=== PATIENT | female | born 1960 | race American Indian/Alaskan Native ===

== ENCOUNTER 2016-11-03 11:43 | Emergency (ER) | payer MEDICAID ==
[2016-11-03 11:45] VITALS: BMI 31.6
== END 2016-11-03 14:11 | disposition left against medical advice (07) ==
LOC: ED 11:43
DX: Z02.89 Encounter for other administrative examinations (principal); Z00.00 Encounter for general adult medical examination without abnormal findings

== ENCOUNTER 2017-09-21 16:03 | Emergency (ER) | payer MEDICAID, OTHER ==
[2017-09-21 16:04] VITALS: BMI 31.6
[2017-09-21 16:32] VITALS: BP 163/71; PULSE 89; RESP 19; TEMP 98.5; O2SAT 96
--- NOTE | 2017-09-21 17:26 | ED PDOC ---
Arrival/HPI - General Chief Complaint: ENT Problem Time Seen by Provider: 09/21/17 17:23 Historian: Patient - History of Present Illness Narrative History of Present Illness (Text): 09/21/17 17:25 This 57 yo female with pmh htn, and pna, presents to this ED c/o cough sore throat, and fever x 2 days. Patient stated her grandson was dx. with Influenza , and she feels she was exposed to the influenza virus. Denies sob, cp, abdominal pain, skin rash, dizziness, urinary symptoms, or abnormal gait. Time/Duration: Other (see hpi) Context: Home Past Medical History - Provider Review Nursing Documentation Reviewed: Yes - Infectious Disease Hx of Infectious Diseases: None - Tetanus Immunization Tetanus Immunization: Unknown - Reproductive Menopause: Yes - Cardiac Hx Hypertension: Yes - Pulmonary Hx Respiratory Disorders: Yes Hx Asthma: Yes - Musculoskeletal/Rheumatological Hx Falls: No - Psychiatric Hx Substance Use: No - Surgical History Hx Cholecystectomy: Yes - Anesthesia Hx Anesthesia: Yes Hx Anesthesia Reactions: No Hx Malignant Hyperthermia: No Family/Social History - Physician Review Nursing Documentation Reviewed: Yes Family/Social History: Other Smoking Status: Former Smoker Hx Alcohol Use: Yes (social) Hx Substance Use: No Allergies/Home Meds Allergies/Adverse Reactions: Allergies No Known Allergies Allergy (Verified 09/21/17 16:32) Home Medications: Home Meds Medication Instructions Recorded Confirmed Enalapril Maleate [Vasotec] 10 mg PO DAILY 04/13/16 09/21/17 Montelukast [Singulair] 10 mg PO DAILY 04/13/16 09/21/17 amLODIPine [Norvasc] 5 mg PO DAILY 04/13/16 09/21/17 Review of Systems - Review of Systems Constitutional: Normal. absent: Fatigue, Weight Change, Fevers, Night Sweats Eyes: Normal ENT: Sore Throat, Rhinorrhea Respiratory: Cough Cardiovascular: Normal Gastrointestinal: Normal Genitourinary Female: Normal Musculoskeletal: Myalgias Skin: Normal Neurological: Normal Endocrine: Normal Hemo/Lymphatic: Normal Psychiatric: Normal Physical Exam Vital Signs Temp Pulse Resp BP Pulse Ox 09/21/17 16:26 98.5 F 89 19 163/71 H 96 Temperature: Afebrile Blood Pressure: Normal Pulse: Regular Respiratory Rate: Normal Appearance: Positive for: Well-Appearing, Non-Toxic, Comfortable Pain Distress: None Mental Status: Positive for: Alert and Oriented X 3 - Systems Exam Head: Present: Atraumatic, Normocephalic Pupils: Present: PERRL Extroacular Muscles: Present: EOMI Conjunctiva: Present: Normal Mouth: Present: Moist Mucous Membranes Pharnyx: Present: Normal. No: ERYTHEMA, EXUDATE, TONSILS ENLARGED Nose (External): Present: Atraumatic Nose (Internal): Present: Normal Inspection Neck: Present: Normal Range of Motion, Trachea Midline. No: Meningeal Signs, MIDLINE TENDERNESS, Paraspinal Tenderness, Lymphadenopathy Respiratory/Chest: Present: Clear to Auscultation, Good Air Exchange. No: Respiratory Distress, Accessory Muscle Use, Wheezes, Retracting, Rhonchi, Tachypneic Cardiovascular: Present: Regular Rate and Rhythm, Normal S1, S2. No: Murmurs Abdomen: Present: Normal Bowel Sounds. No: Tenderness, Distention, Peritoneal Signs Back: Present: Normal Inspection Upper Extremity: Present: Normal Inspection. No: Cyanosis, Edema Lower Extremity: Present: Normal Inspection. No: Edema Neurological: Present: GCS=15, CN II-XII Intact, Speech Normal Skin: Present: Warm, Dry, Normal Color. No: Rashes Psychiatric: Present: Alert, Oriented x 3, Normal Insight, Normal Concentration Medical Decision Making ED Course and Treatment: 09/21/17 17:55 Re-evaluation. Patient feels better. Discussed results and plan with patient who expresses understanding. All questions answered and there is agreement with the plan to discharge home with instructions. Patient stable for discharge. Return if symptoms persist or worsen. Re-evaluation Time: 17:55 Reassessment Condition: Re-examined, Improved - Medication Orders Current Medication Orders: Discontinued Medications Oseltamivir Phosphate (Tamiflu Cap) 75 mg PO STAT STA PRN Reason: Protocol Stop: 09/21/17 17:25 Last Admin: 09/21/17 17:29 Dose: 75 mg Disposition/Present on Arrival - Present on Arrival Any Indicators Present on Arrival: No History of DVT/PE: No History of Uncontrolled Diabetes: No Urinary Catheter: No History of Decub. Ulcer: No History Surgical Site Infection Following: None - Disposition Have Diagnosis and Disposition been Completed?: Yes Diagnosis: Influenza-like symptoms Disposition: HOME/ ROUTINE Disposition Time: 17:56 Patient Plan: Discharge Patient Problems: Current Active Problems Problem Status Onset Influenza-like symptoms Acute Condition: GOOD Discharge Instructions (ExitCare): Influenza (ED) Additional Instructions: Call private doctor for follow up visit in 1-2 days. take medication as instructed with food, and rest. Drink enough fluids, and take medication for fever. Return to emergency f symptoms worsen. Prescriptions: Doxycycline Hyclate 100 mg PO BID #14 capsule Oseltamivir [Tamiflu] 75 mg PO BID #9 cap Referrals: Joe Mesa [Primary Care Provider] - Follow up with primary Forms: [facility] (Romanian), WORK NOTE
== END 2017-09-21 18:15 | disposition home or self-care (01) ==
LOC: ED 16:03
DX: J11.1 Influenza due to unidentified influenza virus with other respiratory manifestations (principal); I10 Essential (primary) hypertension; Z87.891 Personal history of nicotine dependence